=== PATIENT | male | born 1955 | race Caucasian/White ===

== ENCOUNTER → 2017-12-24 | Day surgery (SDC) | payer OTHER ==
[~2017-12-24] VITALS: Ht 182.9 cm; Wt 106.6 kg
--- NOTE | 2017-12-24 11:56 | Operative Report ---
Operative/Inv Procedure Report Surgery Date: 12/24/17 Name of Procedure: cystoscopy: left ureteroscopy with laser litho. renal stones, left stent insertion. fluoroscopy. Pre-Operative Diagnosis: bilateral renal stones with ARF. Post-Operative Diagnosis: same Estimated Blood Loss: scant Surgeon/Neighborhood Planner: Sunny Morton MD Anesthesia: laryngeal mask airway Specimens: left renal stone fragments Complications: none Condition: improved: left renal collecting system cleared of stones: blunted renal calyxes Operative/Procedure Note Note: The patient was taken to the operating room and placed on the OR table in supine position. With the patient awake, timeout was performed in order to confirm; correct patient, correct procedure, as well as correct laterality, and other pertinent jennifer-operative information. After adequate anesthesia and antibiotics , the patient was then placed lithotomy stirrups, draped and prepped in the usual surgical fashion. A 22 Uzbek cystoscope sheath with 30 angle lens was inserted into the bladder without difficulty. Upon entering the bladder, the bladder was noted to be free of tumor, and had multiple small stones which were ellix evacuated out. Both orifices were in their orthotopic position. The left ureter orifice was intubated with an 8fr cone-tip catheter, and a retrograde pyelogram with fluoroscopy was performed. Multiple large left mid and lp pole filling defect ( c/w stone), with mild proximal hydronephrosis, and blunted calyxes were visualized. The cone-tipped catheter was removed, followed by insertion of a 0.035 Glidewire, which was advanced into the left renal pelvis without difficulty. Correct placement was confirmed on fluoroscopy. Leaving the Glidewire in place, a 10 Uzbek ureteral dilator was rail-roaded over the Glidewire. The dilator was advanced slowly, and easily, with fluoroscopic visualization and advanced into the distal left ureter. The ureteral dilator was then removed, leaving the Glidewire and access sheath in place. The flexible ureteroscope was rail-roaded over the Glidewire, and was ealily advanced into the bladder, and into the left ureter under direct fluoroscopic visualization. At this point, pyeloscopy, and calyxoscopy was performed revealing the large stones noted previously and, no tumor. Under direct visualization, the 273 g holmium YAG laser fiber was inserted through the ureteroscope. With the laser fiber in direct contact with the mid pole stone, laser lithotripsy was performed in order to pulverize the stone into multiple tiny fragments. The flexible ureteroscope was reinserted via the access sheath once again. With the laser fiber in direct contact with the lower pole stone, laser lithotripsy was performed in order to pulverize the stone into multiple tiny fragments. The fragments were once again all extracted out, and fragments were sent to pathology for analysis. The fragments were all extracted out, and fragments were sent to pathology for analysis. The Glidewire was then reinserted through the ureteroscope. Leaving the wire in place, the ureteroscope, and access sheat were removed. The entire length of the ureter was again carefully visualized on the way out revealing no further stones. Given the length of time under anesthesia, I decided that the patient would benefit from stent insertion. The 22 Uzbek cystoscope sheath with a 30 angle lens was then reinserted into the bladder, with the Glidewire back loaded into the scope. A 6 X 24 cook black rubber ureteral stent was railroaded over the Glidewire. With the proximal coil advanced into the left renal pelvis, confirmed on fluoroscopy, and the distal coil seen in the bladder - seen cystoscopically, the Glidewire was removed and the stent remained in proper place. The bladder was then drained, and the cystoscope was removed. All sponge, needle, and instrument count were correct at the end of the case. The patient tolerated the procedure well, and was then taken to the recovery room in satisfactory condition. The patient is to follow up in 1-2 weeks for stent removal. Discharge Disposition: PACU CC: Sunny Morton MD
--- NOTE | 2017-12-24 14:24 | RADIOLOGY REPORT ---
EXAMINATION: X-RAY URETEROSCOPY CLINICAL INFORMATION: Left ureteroscopy with stent insertion in OR. COMPARISON: None. TECHNIQUE: Multiple images were obtained in the OR during left ureteroscopy, retrograde pyelogram and placement of a stent. FINDINGS: The images demonstrate the left ureteroscopy, retrograde pyelogram and placement of a stent. The retrograde pyelogram demonstrates a moderately dilated renal collecting system. There are no definite radiodense renal calculi over the left renal system. Number of images: 18. Fluoroscopic time: 1.9 minutes. IMPRESSION: 1. Multiple intraprocedural images during left ureteroscopy, retrograde pyelogram and placement of a stent. 2. Please see procedural notes for further details.
== END ==
LOC: STS 01:16
DX: N20.0 Calculus of kidney (principal); Z87.442 Personal history of urinary calculi; N13.30 Unspecified hydronephrosis; N17.9 Acute kidney failure, unspecified; I10 Essential (primary) hypertension; M19.90 Unspecified osteoarthritis, unspecified site; G47.33 Obstructive sleep apnea (adult) (pediatric)
CPT/HCPCS: 76000; J2250